=== PATIENT | male | born 1975 ===

== ENCOUNTER 2022-11-01 05:45 | Day surgery (SDC) | payer OTHER ==
[~2022-11-01] VITALS: Ht 167.6 cm; Wt 93.0 kg
[~2022-11-01 05:45] MED LIST: COZAAR100 MG PO; MITIGARE0.6 MG PO; TOPROL XL25 M1 PO; ZYLOPRIM100 MG PO; [UNRECOGNIZED DRUG - OTHER]
[2022-11-01] MEDS ORDERED: PERCOCET 5-3251 EACH PO (08:26)
[2022-11-01] MEDS ORDERED: NEURONTIN300 MG PO (08:26)
[2022-11-01] MEDS ORDERED: COLACE100 MG PO (08:26)
== END 2022-11-01 14:10 | disposition home or self-care (01) ==
LOC: CIR.AMB 05:45
PROVIDERS: ATTEND Surgery
DX: K60.1 Chronic anal fissure (principal); K62.5 Hemorrhage of anus and rectum; K62.89 Other specified diseases of anus and rectum; K62.4 Stenosis of anus and rectum; I10 Essential (primary) hypertension; Z20.822 Contact with and (suspected) exposure to COVID-19; Z03.818 Encounter for observation for suspected exposure to other biological agents ruled out; Z88.6 Allergy status to analgesic agent